=== PATIENT | female | born 1965 | race American Indian/Alaskan Native ===

== ENCOUNTER 2017-10-20 09:03 | Outpatient (CLI) | payer MEDICARE ==
--- NOTE | 2017-10-21 15:59 | Ultrasound Report ---
ULTRASOUND LEFT LOWER EXTREMITY NONVASCULAR: 10/20/17 09:30:00 CLINICAL: Swelling. FINDINGS: Ultrasound of the left lateral calf was performed where the patient described swelling. Normal underlying fat. No mass or fluid collection. IMPRESSION: Negative study.
--- NOTE | 2017-10-22 08:36 | Mammography Report ---
BILATERAL DIGITAL SCREENING MAMMOGRAM with CAD : 10/20/17 09:03:00 CLINICAL: Routine screening. COMPARISON:None available. FINDINGS: The breasts are heterogeneously dense, which may obscure small masses. No mass, architectural distortion or suspicious calcifications. IMPRESSION: No mammographic evidence of malignancy. BI-RADS CATEGORY: 1 - - Negative RECOMMENDATION: Routine mammographic screening in one year. COMMENT: Patient follow-up letters are generated by our [employer] application.
== END 2017-10-20 09:04 | disposition home or self-care (01) ==
LOC: SPVWC 09:03
DX: Z12.31 Encounter for screening mammogram for malignant neoplasm of breast (principal); M79.89 Other specified soft tissue disorders
CPT/HCPCS: 77067